=== PATIENT | female | born 1945 | race American Indian/Alaskan Native ===

== ENCOUNTER 2016-09-18 10:19 | Outpatient (CLI) | payer MEDICARE ==
--- NOTE | 2016-09-18 11:42 | Mammography Report ---
The patient had this exam on the date indicated above. It was indicated to us that previous films should be available that would be helpful in providing optimal evaluation with regards to the current study. A final report will be issued, pending receipt of the prior study. CAD was utilized.
== END 2016-09-18 10:20 | disposition home or self-care (01) ==
LOC: MAMMO 10:19
PROVIDERS: ATTEND Internal Medicine
DX: Z12.31 Encounter for screening mammogram for malignant neoplasm of breast (principal)
CPT/HCPCS: 77067; G0202

== ENCOUNTER 2016-11-06 10:06 | Outpatient (CLI) | payer MEDICARE ==
--- NOTE | 2016-11-06 12:58 | Mammography Report ---
Bilateral diagnostic mammogram. History: Recall. Findings: The patient's recent screening study in September of 2016 was reviewed. A few calcifications in the subareolar left breast are present. Magnification images demonstrate fairly coarse appearance and most of the calcifications. A few of the calcifications demonstrate variable morphology and need followup. No masses are seen. In the right breast, a small linear density in the axillary tail demonstrates no suspicious features on spot compression images. Impression: Left breast calcifications which are probably benign. BI-RADS code: 3. Recommendation: A 6 month followup left mammogram is recommended to ensure stability.
== END 2016-11-06 10:07 | disposition home or self-care (01) ==
LOC: MAMMO 10:06
PROVIDERS: ATTEND Internal Medicine
DX: N64.4 Mastodynia (principal); R92.1 Mammographic calcification found on diagnostic imaging of breast; I10 Essential (primary) hypertension; J44.9 Chronic obstructive pulmonary disease, unspecified; F32.9 Major depressive disorder, single episode, unspecified; F29 Unspecified psychosis not due to a substance or known physiological condition; J45.909 Unspecified asthma, uncomplicated; Z87.891 Personal history of nicotine dependence
CPT/HCPCS: 77066; G0204

== ENCOUNTER 2021-09-24 15:11 | Emergency (ER) | payer MEDICARE ==
--- NOTE | 2021-09-24 16:12 | XRay Report ---
CHEST 1 VIEW INDICATION / CLINICAL INFORMATION: tia. COMPARISON: 09/06/2015 FINDINGS: SUPPORT DEVICES: Unchanged. Aortic arch stent graft is again demonstrated. HEART / MEDIASTINUM: No significant abnormality. LUNGS / PLEURA: Mild hazy airspace opacities bilateral basilar zones, nonspecific. No focal consolida tion or significant effusion. No pneumothorax. ADDITIONAL FINDINGS: No significant additional findings. IMPRESSION: Mild bibasilar airspace disease, nonspecific but favor atelectasis given low lung volumes. Signer Name: Maxim Cooper MD Signed: 09/24/2021 4:08 PM Workstation Name: [id number]
--- NOTE | 2021-09-24 16:13 | XRay Report ---
LEFT HIP 2 VIEW(S) INDICATION / CLINICAL INFORMATION: left hip pain s/p fall 3 weeks ago COMPARISON: None available. FINDINGS: BONES / JOINT(S): No acute fracture or subluxation. Mild degenerative changes of bilateral hip joints . SOFT TISSUES: No significant abnormality. ADDITIONAL FINDINGS: None. Signer Name: Maxim Cooper MD Signed: 09/24/2021 4:09 PM Workstation Name: [id number]
[2021-09-24 16:18] LABS: Basophils % (Auto) 0.8 % (0.0-1.8); Eosinophils # (Auto) 0.1 K/mm3 (0.0-0.4); Eosinophils % (Auto) 2.9 % (0.0-4.3); Lymphocytes # (Auto) 1.2 K/mm3 (1.2-5.4); Lymphocytes % (Auto) 24.6 % (13.4-35.0); Mean Corpuscular HGB Conc 31 % (30-34); Mean Corpuscular Volume 72 fl (79-97); Monocytes # (Auto) 0.2 K/mm3 (0.0-0.8); Monocytes % (Auto) 4.6 % (0.0-7.3); Platelet Count 181 K/mm3 (140-440); Red Blood Count 5.61 M/mm3 (3.65-5.03); Red Cell Distribution Width 17.7 % (13.2-15.2)
[2021-09-24 16:19] LABS: Hematocrit 40.2 % (30.3-42.9); Hemoglobin 12.3 gm/dl (10.1-14.3)
--- NOTE | 2021-09-24 16:24 | Cat Scan Report ---
CT head/brain wo con INDICATION: tia transient aphasia at 9am. TECHNIQUE: Routine CT head without contrast. All CT scans at this location are performed using CT dos e reduction for ALARA by means of automated exposure control. COMPARISON: None. FINDINGS: BRAIN / INTRACRANIAL CONTENTS: No acute hemorrhage, mass effect, midline shift, or hydrocephalus. No appreciable acute large territorial or lacunar infarct. There is a chronic infarct in the right MCA t erritory. There is severe chronic small vessel ischemic change in the cerebral white matter and mild global atrophy. ORBITS: No significant abnormality of visualized orbits. SINUSES / MASTOIDS: No significant abnormality of visualized sinuses and mastoid air cells. ADDITIONAL FINDINGS: None. IMPRESSION: 1. No definite acute findings. Chronic ischemic changes as described. Signer Name: Dayne Parra MD Signed: 09/24/2021 4:19 PM Workstation Name: [id number]
[2021-09-24 16:29] LABS: INR 0.96 (0.87-1.13)
[2021-09-24 16:30] LABS: Alanine Aminotransferase 10 units/L (7-56); BUN/Creatinine Ratio 26; Blood Urea Nitrogen 13 mg/dL (7-17); Calcium 9.6 mg/dL (8.4-10.2); Hemolysis Index 34; Partial Thromboplastin Time 31.6 Sec. (24.2-36.6)
--- NOTE | 2021-09-24 16:48 | Emergency Department Report ---
ED Neuro Deficit HPI - General Chief Complaint: Extremity Problem,Nontraumatic Stated Complaint: L LEG PAIN Time Seen by Provider: 09/24/21 15:19 Source: patient, EMS Mode of arrival: Stretcher Limitations: Physical Limitation - History of Present Illness Initial Comments: 76-year-old female with a past medical history of right MCA with residual deficits, diabetes, COPD, thoracic aortic aneurysm repair, schizophrenia, OR, unspecified convulsions, and frequent falls [facility] with complaints of a transient alteration in neurologic status. EMS reports that staff states around 9 AM patient was not responding to them while speaking. Patient states she remembers staff speaking to her but states she could not get her mouth to move. It is unclear how long this episode lasted. EMS reports that upon their arrival patient was at her baseline mental status without any complaints. Patient arrived here approximately just after 1 PM and is alert and oriented x3. She complains of ongoing left hip pain since fall 3 weeks ago. Patient tells us she is here because she wanted to go on a field trip and take a break from the jail - Related Data Home Medications: Home Medications Medication Instructions Recorded Confirmed Last Taken Albuterol Sulfate [Ventolin HFA] 2 puff IH Q4H PRN 09/06/15 09/06/15 Unknown AtorvaSTATin [Lipitor] 20 mg PO QHS 09/06/15 09/06/15 Unknown Cetirizine HCl [All Day Allergy] 10 mg PO DAILY 09/06/15 09/06/15 Unknown Docusate Sodium [Colace CAP] 100 mg PO BID PRN 09/06/15 09/06/15 Unknown Ferrous Sulfate [Feosol 325 MG tab] 325 mg PO BID 09/06/15 09/06/15 Unknown Gabapentin 300 mg PO Q8HR 09/06/15 09/06/15 Unknown Lactobacillus Rhamnosus GG 1 each BID 09/06/15 09/06/15 Unknown [Culturelle] Meloxicam [Mobic] 7.5 mg PO QDAY 09/06/15 09/06/15 Unknown Montelukast [Singulair] 10 mg PO QPM 09/06/15 09/06/15 Unknown Niacin ER [Niaspan ER] 1,000 mg PO QHS 09/06/15 09/06/15 Unknown Omeprazole [PriLOSEC] 20 mg PO QDAY 09/06/15 09/06/15 Unknown Oxybutynin [Ditropan] 5 mg PO BID 09/06/15 09/06/15 Unknown Promethazine [Phenergan] 25 mg PO Q6HR PRN 09/06/15 09/06/15 Unknown Quetiapine Fumarate [Seroquel] 100 mg PO QHS 09/06/15 09/06/15 Unknown Sertraline [Zoloft] 100 mg PO QDAY 09/06/15 09/06/15 Unknown Tizanidine HCl [Zanaflex] 4 mg PO TID 09/06/15 09/06/15 Unknown amLODIPine 10 mg PO DAILY 09/06/15 09/06/15 Unknown atenoloL [Tenormin] 25 mg PO DAILY 09/06/15 09/06/15 Unknown cycloSPORINE [Restasis 0.05%] 1 drop OP BID 09/06/15 09/06/15 Unknown levETIRAcetam [Keppra TAB] 750 mg PO BID 09/06/15 09/06/15 Unknown Previous Rx's Medication Instructions Recorded Last Taken Type levoFLOXacin [Levaquin] 750 mg PO QDAY 3 Days tablet 09/08/15 Unknown Rx lisinopriL [Zestril TAB] 20 mg PO QDAY 5 Days tablet 09/08/15 Unknown Rx traMADoL [Ultram 50 MG tab] 50 mg PO Q8HR PRN 5 Days tablet 09/08/15 Unknown Rx Allergies/Adverse Reactions: Allergies Allergy/AdvReac Type Severity Reaction Status Date / Time No Known Allergies Allergy Verified 09/24/21 16:15 ED Review of Systems ROS: Stated complaint: L LEG PAIN Other details as noted in HPI Comment: All other systems reviewed and negative ED Past Medical Hx - Past Medical History Hx Hypertension: Yes Hx Diabetes: Yes Hx GERD: Yes Hx Arthritis: Yes (left hand) Hx Seizures: Yes Hx Psychiatric Treatment: Yes (major depressive disorder) Hx COPD: Yes Additional medical history: thoracic aortic aneurysm, convulsions, hemiplegia - Surgical History Hx Open Heart Surgery: Yes (OR) Additional Surgical History: abdominal - Social History Smoking Status: Never Smoker - Medications Home Medications: Home Medications Medication Instructions Recorded Confirmed Last Taken Type Albuterol Sulfate [Ventolin HFA] 2 puff IH Q4H PRN 09/06/15 09/06/15 Unknown History AtorvaSTATin [Lipitor] 20 mg PO QHS 09/06/15 09/06/15 Unknown History Cetirizine HCl [All Day Allergy] 10 mg PO DAILY 09/06/15 09/06/15 Unknown History Docusate Sodium [Colace CAP] 100 mg PO BID PRN 09/06/15 09/06/15 Unknown History Ferrous Sulfate [Feosol 325 MG tab] 325 mg PO BID 09/06/15 09/06/15 Unknown History Gabapentin 300 mg PO Q8HR 09/06/15 09/06/15 Unknown History Lactobacillus Rhamnosus GG 1 each BID 09/06/15 09/06/15 Unknown History [Culturelle] Meloxicam [Mobic] 7.5 mg PO QDAY 09/06/15 09/06/15 Unknown History Montelukast [Singulair] 10 mg PO QPM 09/06/15 09/06/15 Unknown History Niacin ER [Niaspan ER] 1,000 mg PO QHS 09/06/15 09/06/15 Unknown History Omeprazole [PriLOSEC] 20 mg PO QDAY 09/06/15 09/06/15 Unknown History Oxybutynin [Ditropan] 5 mg PO BID 09/06/15 09/06/15 Unknown History Promethazine [Phenergan] 25 mg PO Q6HR PRN 09/06/15 09/06/15 Unknown History Quetiapine Fumarate [Seroquel] 100 mg PO QHS 09/06/15 09/06/15 Unknown History Sertraline [Zoloft] 100 mg PO QDAY 09/06/15 09/06/15 Unknown History Tizanidine HCl [Zanaflex] 4 mg PO TID 09/06/15 09/06/15 Unknown History amLODIPine 10 mg PO DAILY 09/06/15 09/06/15 Unknown History atenoloL [Tenormin] 25 mg PO DAILY 09/06/15 09/06/15 Unknown History cycloSPORINE [Restasis 0.05%] 1 drop OP BID 09/06/15 09/06/15 Unknown History levETIRAcetam [Keppra TAB] 750 mg PO BID 09/06/15 09/06/15 Unknown History levoFLOXacin [Levaquin] 750 mg PO QDAY 3 Days tablet 09/08/15 Unknown Rx lisinopriL [Zestril TAB] 20 mg PO QDAY 5 Days tablet 09/08/15 Unknown Rx traMADoL [Ultram 50 MG tab] 50 mg PO Q8HR PRN 5 Days tablet 09/08/15 Unknown Rx ED Neuro Physical Exam - General Limitations: Physical Limitation Suspected Stroke: No - NIHSS Assessment Interval: Baseline 1a. Level of Consciousness: alert/keenly responsive 1b. LOC Questions: answers both correctly 1c. LOC Commands: performs tasks correctly 2. Best Gaze: normal 3. Visual: no visual loss 4. Facial Palsy: minor paralysis 5b. Motor Arm Right: no drift 5a. Motor Arm Left: some gravity effort 6a. Motor Leg Left: no gravity effort 6b. Motor Leg Right: no drift 7. Limb Ataxia: absent 8. Sensory: normal 9. Best Language: no aphasia 10. Dysarthria: normal 11. Extinction/Inattention: no abnormality Total Score: 6 Stroke Severity: Moderate Stroke - Other Other exam information: General: No acute distress Head: Atraumatic Eyes: normal appearance ENT: Moist mucous membranes Neck: Normal appearance, no midline tenderness Chest: Clear to auscultation bilaterally CV: Regular rate and rhythm Abdomen: Soft, normal bowel sounds, nontender, nondistended, no rebound or guarding Back: Normal inspection Extremity: Left leg externally rotated weak secondary to previous stroke. Mild pain to left hip with passive movement. Full passive range of motion of knee and ankle without pain. No calf tenderness or leg edema Neuro: Alert O x 3, see NIH stroke scale Psych: Appropriate behavior Skin: No rash ED Course Vital Signs 09/24/21 09/24/21 09/24/21 15:11 15:34 15:35 Temperature Pulse Rate 88 85 Respiratory 14 Rate Blood Pressure Blood Pressure 140/70 [Left] O2 Sat by Pulse 98 96 99 Oximetry 09/24/21 09/24/21 09/24/21 15:46 16:50 17:10 Temperature 98 F Pulse Rate 88 84 Respiratory 19 24 Rate Blood Pressure 143/80 135/87 Blood Pressure [Left] O2 Sat by Pulse 97 97 Oximetry 09/24/21 09/24/21 09/24/21 17:16 17:30 18:44 Temperature Pulse Rate 84 85 84 Respiratory 24 21 20 Rate Blood Pressure 135/87 133/95 Blood Pressure 121/67 [Left] O2 Sat by Pulse 98 98 100 Oximetry - Consultations Consultation #1: 09/24/21 16:46 case d/w Neurologist DR Hawkins. suggests possibility of seizure. I reviewed patient's MAR and she is on Keppra for unspecified seizures. She also takes Depakote for schizophrenia and Seroquel for psychosis. Since patient is at baseline if work-up unremarkable patient does not require any further inpatient neurologic evaluation - Lab Data Result diagrams: 09/24/21 15:55 09/24/21 15:55 Lab Results 09/24/21 09/24/21 09/24/21 Range/Units 15:55 15:55 15:55 WBC 4.8 (4.5-11.0) K/mm3 RBC 5.61 H (3.65-5.03) M/mm3 Hgb 12.3 (10.1-14.3) gm/dl Hct 40.2 (30.3-42.9) % MCV 72 L (79-97) fl MCH 22 L (28-32) pg MCHC 31 (30-34) % RDW 17.7 H (13.2-15.2) % Plt Count 181 (140-440) K/mm3 Lymph % (Auto) 24.6 (13.4-35.0) % [place] % (Auto) 4.6 (0.0-7.3) % Eos % (Auto) 2.9 (0.0-4.3) % Baso % (Auto) 0.8 (0.0-1.8) % Lymph # (Auto) 1.2 (1.2-5.4) K/mm3 [place] # (Auto) 0.2 (0.0-0.8) K/mm3 Eos # (Auto) 0.1 (0.0-0.4) K/mm3 Baso # (Auto) 0.0 (0.0-0.1) K/mm3 Seg Neutrophils % 67.1 (40.0-70.0) % Seg Neutrophils # 3.2 (1.8-7.7) K/mm3 PT 13.8 (12.2-14.9) Sec. INR 0.96 (0.87-1.13) APTT 31.6 (24.2-36.6) Sec. Sodium 141 (137-145) mmol/L Potassium 4.7 (3.6-5.0) mmol/L Chloride 101.1 (98-107) mmol/L Carbon Dioxide 28 (22-30) mmol/L Anion Gap 17 mmol/L BUN 13 (7-17) mg/dL Creatinine 0.5 L (0.6-1.2) mg/dL Estimated GFR > 60 ml/min BUN/Creatinine Ratio 26 % Glucose 103 H (65-100) mg/dL POC Glucose (70-105) mg/dL Calcium 9.6 (8.4-10.2) mg/dL Total Bilirubin 0.20 (0.1-1.2) mg/dL AST 14 (5-40) units/L ALT 10 (7-56) units/L Alkaline Phosphatase 110 (35-129) units/L Troponin T < 0.010 (0.00-0.029) ng/mL Total Protein 6.9 (6.3-8.2) g/dL Albumin 4.0 (3.9-5) g/dL Albumin/Globulin Ratio 1.4 % Urine Color (Yellow) Urine Turbidity (Clear) Urine pH (5.0-7.0) Ur Specific [place] (1.003-1.030) Urine Protein (Negative) mg/dL Urine Glucose (UA) (Negative) mg/dL Urine Ketones (Negative) mg/dL Urine Blood (Negative) Urine Nitrite (Negative) Urine Bilirubin (Negative) Urine Urobilinogen (<2.0) mg/dL Ur Leukocyte Esterase (Negative) Urine WBC (Auto) (0.0-6.0) /HPF Urine RBC (Auto) (0.0-6.0) /HPF U Epithel Cells (Auto) (0-13.0) /HPF Urine Mucus /HPF 09/24/21 09/24/21 Range/Units 16:28 16:35 WBC (4.5-11.0) K/mm3 RBC (3.65-5.03) M/mm3 Hgb (10.1-14.3) gm/dl Hct (30.3-42.9) % MCV (79-97) fl MCH (28-32) pg MCHC (30-34) % RDW (13.2-15.2) % Plt Count (140-440) K/mm3 Lymph % (Auto) (13.4-35.0) % [place] % (Auto) (0.0-7.3) % Eos % (Auto) (0.0-4.3) % Baso % (Auto) (0.0-1.8) % Lymph # (Auto) (1.2-5.4) K/mm3 [place] # (Auto) (0.0-0.8) K/mm3 Eos # (Auto) (0.0-0.4) K/mm3 Baso # (Auto) (0.0-0.1) K/mm3 Seg Neutrophils % (40.0-70.0) % Seg Neutrophils # (1.8-7.7) K/mm3 PT (12.2-14.9) Sec. INR (0.87-1.13) APTT (24.2-36.6) Sec. Sodium (137-145) mmol/L Potassium (3.6-5.0) mmol/L Chloride (98-107) mmol/L Carbon Dioxide (22-30) mmol/L Anion Gap mmol/L BUN (7-17) mg/dL Creatinine (0.6-1.2) mg/dL Estimated GFR ml/min BUN/Creatinine Ratio % Glucose (65-100) mg/dL POC Glucose 106 H (70-105) mg/dL Calcium (8.4-10.2) mg/dL Total Bilirubin (0.1-1.2) mg/dL AST (5-40) units/L ALT (7-56) units/L Alkaline Phosphatase (35-129) units/L Troponin T (0.00-0.029) ng/mL Total Protein (6.3-8.2) g/dL Albumin (3.9-5) g/dL Albumin/Globulin Ratio % Urine Color Evy (Yellow) Urine Turbidity Clear (Clear) Urine pH 5.0 (5.0-7.0) Ur Specific [place] 1.029 (1.003-1.030) Urine Protein 30 mg/dl (Negative) mg/dL Urine Glucose (UA) Neg (Negative) mg/dL Urine Ketones Neg (Negative) mg/dL Urine Blood Neg (Negative) Urine Nitrite Neg (Negative) Urine Bilirubin Neg (Negative) Urine Urobilinogen < 2.0 (<2.0) mg/dL Ur Leukocyte Esterase Neg (Negative) Urine WBC (Auto) 1.0 (0.0-6.0) /HPF Urine RBC (Auto) 4.0 (0.0-6.0) /HPF U Epithel Cells (Auto) 1.0 (0-13.0) /HPF Urine Mucus 3+ /HPF - EKG Data -: EKG Interpreted by Me (Previous inferior and anterior infarct) EKG shows normal: sinus rhythm, ST-T waves (No ST elevation) Rate: normal (85) When compared to previous EKG there are: no significant change - Radiology Data Radiology results: report reviewed CHEST 1 VIEW INDICATION / CLINICAL INFORMATION: tia. COMPARISON: 09/06/2015 FINDINGS: SUPPORT DEVICES: Unchanged. Aortic arch stent graft is again demonstrated. HEART / MEDIASTINUM: No significant abnormality. LUNGS / PLEURA: Mild hazy airspace opacities bilateral basilar zones, nonspecific. No focal consolidation or significant effusion. No pneumothorax. ADDITIONAL FINDINGS: No significant additional findings. IMPRESSION: Mild bibasilar airspace disease, nonspecific but favor atelectasis given low lung volumes. LEFT HIP 2 VIEW(S) INDICATION / CLINICAL INFORMATION: left hip pain s/p fall 3 weeks ago COMPARISON: None available. FINDINGS: BONES / JOINT(S): No acute fracture or subluxation. Mild degenerative changes of bilateral hip joints. SOFT TISSUES: No significant abnormality. ADDITIONAL FINDINGS: None. CT head/brain wo con INDICATION: tia transient aphasia at 9am. TECHNIQUE: Routine CT head without contrast. All CT scans at this location are performed using CT dose reduction for ALARA by means of automated exposure control. COMPARISON: None. FINDINGS: BRAIN / INTRACRANIAL CONTENTS: No acute hemorrhage, mass effect, midline shift, or hydrocephalus. No appreciable acute large territorial or lacunar infarct. There is a chronic infarct in the right MCA territory. There is severe chronic small vessel ischemic change in the cerebral white matter and mild global atrophy. ORBITS: No significant abnormality of visualized orbits. SINUSES / MASTOIDS: No significant abnormality of visualized sinuses and mastoid air cells. ADDITIONAL FINDINGS: None. IMPRESSION: 1. No definite acute findings. Chronic ischemic changes as described. - Medical Decision Making 76-year-old female presents to the hospital at baseline mental status after episode of alteration in mental status/neurologic function earlier this morning. Patient differential includes TIA, new stroke, seizures, hypoglycemia, encephalopathy, or infection. No acute findings found on ED work-up. Since patient is at baseline mental status at this time she will be treated with extra dose of Keppra in case her episode was secondary to seizure and [facility]. Left hip x-ray does not reveal any fracture. Patient does not have any isolated calf tenderness or swelling to suggest DVT Critical Care Time: No Critical care attestation.: If time is entered above; I have spent that time in minutes in the direct care of this critically ill patient, excluding procedure time. ED Disposition Clinical Impression: Transient neurologic deficit, History of seizure, History of CVA with residual deficit, Chronic pain of left lower extremity Disposition: 03 [facility]ARE HOME [facility] Is pt being admited?: No Does the pt Need Aspirin: No Condition: Stable Instructions: Seizure, Adult, Transient Ischemic Attack Additional Instructions: Continue current medication as prescribed. Follow-up with your neurologist and primary care doctor. return if symptoms worsen as indicated by your discharge instructions. Referrals: VLAD STOUT MD [Primary Care Provider] - 3-5 Days
--- NOTE | 2021-09-24 16:49 | Consultation ---
History of Present Illness Consult date: 09/24/21 History of present illness: [facility] Consult Note # Demographics Consult Type: Follow-Up Phone Call Patient Location: Emergency Room First Name: marty Last Name: juan jose Date of : 1945 Age: 76 Gender: Female Facility: [facility] Time of Initial Page (Eastern Time): 09/24/2021, 16:40 Time of Return Call (Eastern Time): 09/24/2021, 16:40 Phone Only Consult: Called ER Physician back as requested. She reported patient came from [facility] - history of right MCA with deficits. At 9am, patient unresponsive to staff. Patient reportedly had difficulty getting words out, which reportedly has occurred previously. Head CT did not reveal any new pathology. Per ER Physician, patient reportedly stated she was at her cognitive/ neurologic baseline. History of schizophrenia, on Depakote, as well as Keppra for unspecified convulsions. The patient reportedly remembered not being able to speak. As the patient is reportedly stable & her baseline currently, without appreciable new pathology & on two anticonvulsants in a supervised setting, it was suggested the patient could follow-up with her PCP & Neurologist for further evaluation & management. Medications and Allergies Allergies Allergy/AdvReac Type Severity Reaction Status Date / Time No Known Allergies Allergy Verified 09/24/21 16:15 Home Medications Medication Instructions Recorded Confirmed Last Taken Type Albuterol Sulfate [Ventolin HFA] 2 puff IH Q4H PRN 09/06/15 09/06/15 Unknown History AtorvaSTATin [Lipitor] 20 mg PO QHS 09/06/15 09/06/15 Unknown History Cetirizine HCl [All Day Allergy] 10 mg PO DAILY 09/06/15 09/06/15 Unknown History Docusate Sodium [Colace CAP] 100 mg PO BID PRN 09/06/15 09/06/15 Unknown History Ferrous Sulfate [Feosol 325 MG tab] 325 mg PO BID 09/06/15 09/06/15 Unknown History Gabapentin 300 mg PO Q8HR 09/06/15 09/06/15 Unknown History Lactobacillus Rhamnosus GG 1 each BID 09/06/15 09/06/15 Unknown History [Culturelle] Meloxicam [Mobic] 7.5 mg PO QDAY 09/06/15 09/06/15 Unknown History Montelukast [Singulair] 10 mg PO QPM 09/06/15 09/06/15 Unknown History Niacin ER [Niaspan ER] 1,000 mg PO QHS 09/06/15 09/06/15 Unknown History Omeprazole [PriLOSEC] 20 mg PO QDAY 09/06/15 09/06/15 Unknown History Oxybutynin [Ditropan] 5 mg PO BID 09/06/15 09/06/15 Unknown History Promethazine [Phenergan] 25 mg PO Q6HR PRN 09/06/15 09/06/15 Unknown History Quetiapine Fumarate [Seroquel] 100 mg PO QHS 09/06/15 09/06/15 Unknown History Sertraline [Zoloft] 100 mg PO QDAY 09/06/15 09/06/15 Unknown History Tizanidine HCl [Zanaflex] 4 mg PO TID 09/06/15 09/06/15 Unknown History amLODIPine 10 mg PO DAILY 09/06/15 09/06/15 Unknown History atenoloL [Tenormin] 25 mg PO DAILY 09/06/15 09/06/15 Unknown History cycloSPORINE [Restasis 0.05%] 1 drop OP BID 09/06/15 09/06/15 Unknown History levETIRAcetam [Keppra TAB] 750 mg PO BID 09/06/15 09/06/15 Unknown History levoFLOXacin [Levaquin] 750 mg PO QDAY 3 Days tablet 09/08/15 Unknown Rx lisinopriL [Zestril TAB] 20 mg PO QDAY 5 Days tablet 09/08/15 Unknown Rx traMADoL [Ultram 50 MG tab] 50 mg PO Q8HR PRN 5 Days tablet 09/08/15 Unknown Rx Physical Examination - Vital Signs Vital Signs: Vital Signs Pulse BP Pulse Ox 88 140/70 98 09/24/21 15:11 09/24/21 15:11 09/24/21 15:11 Results - Laboratory Findings CBC and BMP: 09/24/21 15:55 09/24/21 15:55 Abnormal Lab Findings: Abnormal Labs 09/24/21 09/24/21 15:55 15:55 RBC 5.61 H MCV 72 L MCH 22 L RDW 17.7 H Creatinine 0.5 L Glucose 103 H
[2021-09-24] MEDS ORDERED: levETIRAcetam 1000 MG/NS 0.75% 1,000 MG/100 ML BAG IV ONE (16:50)
[2021-09-24 17:07] LABS: Bilirubin,Urine NEG (Negative); Blood,Urine NEG (Negative); Color,Urine Amber (Yellow); Mucus,Urine 3+ /HPF; Urobilinogen,Urine < 2.0 mg/dL (<2.0)
[2021-09-24 18:47] VITALS: BP 121/67
--- NOTE | 2021-09-26 09:58 | Electrocardiograph Report ---
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
== END 2021-09-24 18:44 ==
LOC: ED 15:11
DX: G45.9 Transient cerebral ischemic attack, unspecified (principal); G89.29 Other chronic pain; M79.605 Pain in left leg; R56.9 Unspecified convulsions; I10 Essential (primary) hypertension; E11.9 Type 2 diabetes mellitus without complications; K21.9 Gastro-esophageal reflux disease without esophagitis; M19.90 Unspecified osteoarthritis, unspecified site; J44.9 Chronic obstructive pulmonary disease, unspecified; Z79.899 Other long term (current) drug therapy
CPT/HCPCS: 36415; 70450; 71045; 73502; 80053; 81001; 82962; 84484; 85025; 85610; 85730; 93005; 96374; 99285; J1953